=== PATIENT | female | born 1985 | race Caucasian/White ===

== ENCOUNTER 2017-06-12 18:11 | Inpatient (IN) | payer OTHER ==
[~2017-06-12] VITALS: Ht 160 cm; Wt 81.8 kg
[~2017-06-12 18:11] MED LIST: IBUP-1222 PO; OMEP20TA62 PO; OXYC1TAB7 PO; PREN1TAB60 PO
[2017-06-13] MEDS ORDERED: OXYTOCIN 30U/ 0.9% NaCL 500ML 500 ML IV SCH (05:28)
[2017-06-13] MEDS ORDERED: LACTATED RINGERS 1,000 ML IV SCH ×2 (05:28→05:30)
[2017-06-13] MEDS ORDERED: NEWBORN KIT ONE (05:29)
[2017-06-13] MEDS ORDERED: LACTATED RINGERS 1,000 ML IVBOLUS ONE (05:30)
[2017-06-13] MEDS ORDERED: SODIUM CITRATE/CITRIC ACID 30 ML UDC PO ONE (05:30)
[2017-06-13] MEDS ORDERED: METOCLOPRAMIDE 5 MG/ML, 2ML IV ONE (05:30)
[2017-06-13 05:46] VITALS: BP 118/70
[2017-06-13] MEDS ORDERED: PLEASE ENTER HEIGHT AND WEIGHT MC SCH (06:00)
[2017-06-13 06:09] LABS: BASOPHILS # (AUTO) 0.03 x10^3/uL (0-0.1); BASOPHILS % (AUTO) 0 % (0-1); EOSINOPHILS # (AUTO) 0.14 x10^3/uL (0-0.4); EOSINOPHILS % (AUTO) 1 % (1-7); LYMPHOCYTES % (AUTO) 20 % (22-44); MD NO; MEAN CORPUSCULAR HEMOGLOBIN 31.7 pg (27.0-34.8); MEAN CORPUSCULAR HGB CONC 33.6 g/dL (32.4-35.8); MEAN CORPUSCULAR VOLUME 94.3 fL (80-100); MEAN PLATELET VOLUME 7.8 fL (7.4-10.4); MONOCYTES # (AUTO) 0.74 x10^3/uL (0.2-0.8); MONOCYTES % (AUTO) 7 % (2-9); NEUTROPHILS # (AUTO) 8.07 x10^3/uL (1.8-6.8); NEUTROPHILS % (AUTO) 72 % (42-75); PLATELET COUNT 281 x10^3/uL (130-400); RED CELL DISTRIBUTION WIDTH 13.6 % (9.6-15.2)
[2017-06-13] MEDS ORDERED: METOCLOPRAMIDE 5 MG/ML, 2ML ONE (06:19)
[2017-06-13] MEDS ORDERED: SODIUM CITRATE/CITRIC ACID 30 ML UDC ONE (06:19)
[2017-06-13] MEDS ORDERED: OXYTOCIN 30U/ 0.9% NaCL 500ML 500 ML ONE (07:11)
[2017-06-13] MEDS ORDERED: FENTANYL PF 100 MCG/2ML ONE (07:22)
[2017-06-13] MEDS ORDERED: ONDANSETRON 2MG/ML, 2ML ONE (07:22)
[2017-06-13] MEDS ORDERED: OXYTOCIN 10 UNITS/ML, 1ML ONE (07:22)
[2017-06-13] MEDS ORDERED: CEFAZOLIN 1,000 MG ONE (07:22)
[2017-06-13] MEDS ORDERED: WATER-INJECTION,STERILE 10 ML IV ONE ×2 (07:23)
[2017-06-13] MEDS ORDERED: MISOPROSTOL 200 MCG TABLET ONE (08:36)
[2017-06-13] MEDS: OXYTOCIN 30U/ 0.9% NaCL 500ML 500 ML IV SCH ×2 (08:49→18:49)
[2017-06-13] MEDS: LACTATED RINGERS 1,000 ML IV SCH ×4 (08:49→18:49)
[2017-06-13] MEDS ORDERED: ACETAMINOPHEN 325 MG TABLET PO PRN (09:00)
[2017-06-13] MEDS ORDERED: CARBOPROST TROMETHAMINE 250 MCG/ML, 1ML IM PRN (09:00)
[2017-06-13] MEDS ORDERED: METHYLERGONOVINE 0.2 MG/ML IM PRN (09:00)
[2017-06-13] MEDS: PRENATAL VIT/IRON/FA 1 EACH TABLET PO SCH (09:00)
[2017-06-13] MEDS ORDERED: ONDANSETRON 2MG/ML, 2ML IV PRN (09:00)
[2017-06-13] MEDS ORDERED: MISOPROSTOL 200 MCG TABLET PR PRN (09:00)
[2017-06-13] MEDS ORDERED: morphine SULFATE 10 MG/ML, 1ML IVPush PRN ×2 (09:00)
[2017-06-13] MEDS ORDERED: OXYcodone/APAP 5/325MG TABLET PO PRN (09:00)
[2017-06-13] MEDS ORDERED: KETOROLAC 30 MG/1 ML ONE (10:00)
[2017-06-13] MEDS ORDERED: OXYcodone/APAP 5/325MG TABLET ONE (10:01)
[2017-06-13] MEDS: OXYcodone/APAP 5/325MG TABLET PO PRN ×4 (10:03→22:42)
[2017-06-13] MEDS: KETOROLAC 30 MG/1 ML IVPush SCH ×3 (10:15→22:42)
[2017-06-13 10:45] VITALS: BP 99/58
[2017-06-13 12:00] VITALS: BP 101/66
[2017-06-13 15:37] LABS: BASOPHILS % (AUTO) 1 % (0-1); EOSINOPHILS # (AUTO) 0.08 x10^3/uL (0-0.4); EOSINOPHILS % (AUTO) 1 % (1-7); LYMPHOCYTES # (AUTO) 2.36 x10^3/uL (1-3.4); LYMPHOCYTES % (AUTO) 17 % (22-44); MD NO; MEAN CORPUSCULAR HEMOGLOBIN 32.3 pg (27.0-34.8); MEAN CORPUSCULAR HGB CONC 34.1 g/dL (32.4-35.8); MEAN CORPUSCULAR VOLUME 94.8 fL (80-100); MEAN PLATELET VOLUME 7.6 fL (7.4-10.4); MONOCYTES # (AUTO) 0.75 x10^3/uL (0.2-0.8); MONOCYTES % (AUTO) 5 % (2-9); NEUTROPHILS # (AUTO) 10.54 x10^3/uL (1.8-6.8); NEUTROPHILS % (AUTO) 76 % (42-75); PLATELET COUNT 226 x10^3/uL (130-400); RED BLOOD COUNT 3.29 x10^6/uL (3.82-5.3); RED CELL DISTRIBUTION WIDTH 13.4 % (9.6-15.2)
[2017-06-13 16:00] VITALS: BP 97/75
[2017-06-13 20:00] VITALS: BP 113/69
[2017-06-13] MEDS: DOCUSATE 100 MG CAPSULE PO PRN (22:42)
[2017-06-14 00:15] VITALS: BP 96/63
[2017-06-14] MEDS: LACTATED RINGERS 1,000 ML IV SCH ×3 (00:49→01:21)
[2017-06-14] MEDS: OXYTOCIN 30U/ 0.9% NaCL 500ML 500 ML IV SCH (01:20)
[2017-06-14] MEDS: OXYcodone/APAP 5/325MG TABLET PO PRN ×2 (03:02→08:48)
[2017-06-14] MEDS: KETOROLAC 30 MG/1 ML IVPush SCH ×2 (04:39→11:11)
[2017-06-14 06:59] VITALS: BP 98/61
[2017-06-14] MEDS: DOCUSATE 100 MG CAPSULE PO PRN ×2 (08:48→21:31)
[2017-06-14] MEDS: PRENATAL VIT/IRON/FA 1 EACH TABLET PO SCH (08:51)
[2017-06-14] MEDS: OXYcodone/APAP 10/325MG TABLET PO PRN ×3 (13:34→21:31)
[2017-06-14] MEDS: IBUPROFEN 600 MG TABLET PO PRN ×2 (17:30→23:35)
[2017-06-14 19:50] VITALS: BP 118/83
[2017-06-15] MEDS: OXYcodone/APAP 10/325MG TABLET PO PRN ×4 (01:27→14:00)
[2017-06-15] MEDS ORDERED: OXYC-302 PO (05:04)
[2017-06-15] MEDS ORDERED: IBUP-1222 PO (05:05)
[2017-06-15] MEDS ORDERED: SENN-1 PO (05:07)
[2017-06-15] MEDS: IBUPROFEN 600 MG TABLET PO PRN ×2 (05:31→11:27)
[2017-06-15 07:44] VITALS: BP 106/69
[2017-06-15] MEDS: PRENATAL VIT/IRON/FA 1 EACH TABLET PO SCH (08:04)
[2017-06-15] MEDS: DOCUSATE 100 MG CAPSULE PO PRN (08:04)
== END 2017-06-15 14:50 | disposition home or self-care (01) | DRG 765 ==
LOC: LDIP 06-13 05:26 → 2NW 06-13 10:46
PROVIDERS: ADMIT Obstetrics & Gynecology; ATTEND Obstetrics & Gynecology
PROC: 10D00Z1 Extraction of Products of Conception, Low, Open Approach (ICD-10-PCS; principal; 2017-06-13)
PROC: 0HB9XZZ Excision of Perineum Skin, External Approach (ICD-10-PCS; 2017-06-13)
DX: O34.211 Maternal care for low transverse scar from previous cesarean delivery (principal); O99.354 Diseases of the nervous system complicating childbirth; G43.909 Migraine, unspecified, not intractable, without status migrainosus; Z3A.39 39 weeks gestation of pregnancy; K66.0 Peritoneal adhesions (postprocedural) (postinfection); O99.62 Diseases of the digestive system complicating childbirth; Z37.0 Single live birth
CPT/HCPCS: 36415; 85025; 86850; 86900; J0690; J1885; J2405; J3010; J2590; J2765; J7120